=== PATIENT | female | born 1965 | race Caucasian/White ===

== ENCOUNTER 2024-02-05 11:11 | Emergency (ER) | payer SELFPAY ==
[~2024-02-05] VITALS: Ht 154.9 cm; Wt 59.0 kg
[2024-02-05 11:15] VITALS: BP_SYST 148; PULSE 66; RESP 18; TEMP 98.3; O2SAT 97
[2024-02-05 12:01] LABS: BILIRUBIN,URINE NEGATIVE (NEGATIVE); BLOOD, URINE NEGATIVE (NEGATIVE); CLARITY/URINE CLEAR (CLEAR); COLOR,URINE YELLOW (YELLOW); GLUCOSE,URINE NEGATIVE (NEGATIVE); KETONES,URINE NEGATIVE (NEGATIVE); LEUKOCYTE ESTERASE ,URINE NEGATIVE (NEGATIVE); NITRITE, URINE NEGATIVE (NEGATIVE); PH,URINE 6.5 (5.0-8.0); PROTEIN URINE NEGATIVE (NEGATIVE); UROBILINOGEN,URINE 0.2 (0.2-1.0)
[2024-02-05] MEDS: KETOROLAC TROMETHAMINE 60 MG/2 ML VIAL IM ONE (12:08)
[2024-02-05] MEDS: ONDANSETRON 4 MG ODT TAB PO ONE (12:09)
[2024-02-05] MEDS ORDERED: IBUP-1969 PO (12:40)
[2024-02-05] MEDS ORDERED: ONDA8TAB60 PO (12:40)
[2024-02-05] MEDS ORDERED: HYDR-3917 PO (12:40)
[2024-02-05] MEDS ORDERED: HYDR-3927 PO (12:49)
[2024-02-05 12:57] VITALS: BP_SYST 148; PULSE 66; RESP 18; TEMP 98.3; O2SAT 97
== END 2024-02-05 12:55 | disposition home or self-care (01) ==
LOC: SED 11:11
DX: R51.9 Headache, unspecified (principal); R11.0 Nausea; R42 Dizziness and giddiness
CPT/HCPCS: 99283; 81001; 96372; 81003; Q0162; J1885